=== PATIENT | female | born 1985 | race Caucasian/White ===

== ENCOUNTER 2022-01-05 14:00 | Outpatient (CLI) | payer MEDICARE, MEDICAID, SELFPAY | END 2022-01-05 14:01 | disposition home or self-care (01) | LOC: ANHBWCAUD 14:02 | DX: H90.12 Conductive hearing loss, unilateral, left ear, with unrestricted hearing on the contralateral side (principal) | CPT/HCPCS: 92557; 92567 ==

== ENCOUNTER 2024-04-25 12:31 | Emergency (ER) | payer MEDICARE, MEDICAID, SELFPAY ==
[2024-04-25 12:38] VITALS: BP 115/79; PULSE 108; RESP 20; TEMP 36.9; O2SAT 97
--- NOTE | 2024-04-25 12:49 | ED.URI ---
HPI - URI/Sore Throat General Chief Complaint: Upper Respiratory Infection Stated Complaint: Wheezing and runny nose Time Seen by Provider: 04/25/24 12:51 Source: patient, RN notes reviewed and old records reviewed Mode of arrival: ambulatory Limitations: no limitations History of Present Illness HPI Narrative: 38 year old female accompanied by mother presents to express care with complaints of sinus congestion and drainage, states 'allergy symptoms' for 5 days with no known fevers. Patient reports that she lives in a halfway and she takes nasal spray for her allergies. Patient reports that she has developed now chest congestion and cough and she feels like she is rattling in her chest, denies any acute dyspnea at rest or with activity. MD elicited complaint: cough, rhinorrhea, nasal congestion and other (states feels rattling in chest) Onset (ago): day(s) (5) Severity: moderate Description of mucous: clear and yellow Able to tolerate fluids by mouth: Yes Treatments prior to arrival: other (nasal spray) Related Data Home Medications Medication Instructions Recorded Confirmed medroxyprogesterone 150 mg/mL mg IM 04/25/24 intramuscular syringe sertraline 100 mg tablet mg 04/25/24 sertraline 50 mg tablet mg 04/25/24 Allergies Allergy/AdvReac Type Severity Reaction Status Date / Time No Known Allergies Allergy Unverified 07/24/19 11:49 Review of Systems Review of Systems: CONSTITUTIONAL: Denies malaise, chills, sweats, or fever. EYES: Denies visual changes, redness, or discharge. ENT: Reports rhinorrhea, congestion, sinus pain, no otalgia and no sore throat. CARDIOVASCULAR: Denies chest pain, palpitations, or edema. RESPIRATORY: Reports cough with feelings of congestion in chest.? Denies dyspnea. GASTROINTESTINAL: Denies abdominal pain, nausea, vomiting, diarrhea SKIN: Denies rash or itching. MUSCULOSKELETAL: Denies myalgia. NEUROLOGIC: Denies headache. All systems reviewed & are unremarkable except as noted in HPI and below PMFSH Past Medical History Medical History (Updated 04/27/24 @ 12:49 by Terri Colón NP) Depression History of psychiatric treatment Mental impairment Nasal sinus inflammation due to allergy Social History Social History (Updated 04/27/24 @ 12:47 by Terri Colón NP) Smoking status: Never smoker Alcohol intake: never Substance use: never Living arrangements: halfway Gender identity (if verbalized by the patient): Female Comments At time of signature, agree with nursing past medical, surgical, social and family history. There is no relevant family history pertinent to the presenting complaint Exam Narrative: GENERAL: Well-appearing, well-nourished, and in no acute distress. HEAD: Normocephalic EYES: PERRLA, conjunctivae clear ENT: Nares clear, turbinates edematous and erythematous, clear to light yellow discharge, sinus pressure. Mucous membranes moist. TM pearly bhatia with dull light reflex bilaterally; no tragal tenderness. Oropharynx erythematous without lesions. Tonsils not enlarged and without exudate, no drooling, no hoarseness, no trismus, uvula midline.post nasal drainage NECK: Supple. No lymphadenopathy CHEST:Coarse to bases with some scattered wheezes on auscultation, breath sounds equal. scattered wheezing,no rhonchi, rales, or stridor. No respiratory distress, speaks in full sentences.cough noted SAO2 97% on room air no tachypnea or any retractions HEART: Regular rate and rhythm. No murmur heard. SKIN: Warm, dry, no rash. NEURO: Alert and oriented x3. PSYCH: Normal mood and affect cooperative Course Course Emergency Course: Patient is aware of diagnosis, understands and agrees to treatment plan.? Anticipatory guidance given.? Patient agrees to follow-up as directed and is aware of reasons to seek care at the emergency department. Portions of this record may have been created with voice recognition so
[2024-04-25 12:50] VITALS: BP 115/79; PULSE 108; RESP 20; TEMP 36.9; O2SAT 97
== END 2024-04-25 13:11 | disposition home or self-care (01) ==
PROVIDERS: Emergency Provider Registered Nurse; PCP Internal Medicine
DX: J40 Bronchitis, not specified as acute or chronic (principal); J34.89 Other specified disorders of nose and nasal sinuses
CPT/HCPCS: 99213; G0463